=== PATIENT | female | born 1970 | race Caucasian/White ===

== ENCOUNTER 2020-11-18 23:24 | Emergency (ER) | payer BC ==
[~2020-11-18] VITALS: Ht 157.5 cm; Wt 77.5 kg
--- NOTE | 2020-11-19 01:14 | NUR ---
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 TO ROOM FROM LOBBY AT THIS TIME.
[2020-11-19 01:23] LABS: BASOPHILS % (AUTO) 1 % (0-1); EOSINOPHILS % (AUTO) 1 % (1-7); LYMPHOCYTES % (AUTO) 17 % (22-44); MEAN CORPUSCULAR HEMOGLOBIN 29.6 pg (27.0-34.8); MEAN CORPUSCULAR HGB CONC 34.3 g/dL (32.4-35.8); MEAN PLATELET VOLUME 7.6 fL (7.4-10.4); MONOCYTES % (AUTO) 6 % (2-9); NEUTROPHILS % (AUTO) 76 % (42-75); PLATELET COUNT 339 x10^3/uL (130-400); RED CELL DISTRIBUTION WIDTH 13.2 % (9.6-15.2)
--- NOTE | 2020-11-19 01:23 | NUR ---
ISHAAN ABERNATHY WALKED URINE SAMPLE TO LAB WHILE ROOMING PT.
[2020-11-19 01:26] LABS: MD NO
[2020-11-19 01:32] LABS: ALBUMIN 3.7 g/dL (3.4-5.0); ANION GAP 4 mmol/L (5-15); CALCIUM 8.5 mg/dL (8.5-10.1); CHLORIDE 108 mmol/L (98-107)
[2020-11-19 01:35] LABS: ALANINE AMINOTRANSFERASE 21 U/L (12-78); ALKALINE PHOSPHATASE 103 U/L (45-117); BILIRUBIN,TOTAL 0.7 mg/dL (0.2-1.0); CREATININE 0.92 mg/dL (0.55-1.02); TOTAL PROTEIN 7.5 g/dL (6.4-8.2)
[2020-11-19 01:43] LABS: MICROSCOPIC INDICATED
--- NOTE | 2020-11-19 01:47 | NUR ---
ASSUMED CARE OF PATIENT. PATIENT REPORTS BLOODY URINE AND SOME DISCOMFORT. VS STABLE. NO ACUTE DISTRESS NOTED. CALL LIGHT IN PLACE. WILL CONTINUE TO MONITOR.
--- NOTE | 2020-11-19 01:56 | NUR ---
REPORT GIVEN TO JUAN AWAN
[2020-11-19] MEDS ORDERED: CEFDINIR 300 MG CAPSULE ONE (02:08)
[2020-11-19] MEDS ORDERED: CEFDINIR 300 MG CAPSULE PO ONE (02:30)
[2020-11-19 04:01] VITALS: BP 122/74
== END 2020-11-19 04:03 | disposition home or self-care (01) ==
LOC: ED 11-19 01:36
DX: N30.01 Acute cystitis with hematuria (principal)
CPT/HCPCS: 36415; 76770; 80053; 81001; 83690; 85025; 87077; 87086; 87184; 87186; 99284